=== PATIENT | female | born 1950 | race Two or more races ===

== ENCOUNTER 2020-03-28 16:43 | Emergency (ER) | payer MEDICARE, MEDICAID ==
--- NOTE | 2020-03-28 19:44 | EDM.PDOC ---
ED HPI GENERAL MEDICAL PROBLEM - General Chief Complaint: Neurological Problem Stated Complaint: CONFUSED/PALE Time Seen by Provider: 03/28/20 17:15 Source of Information: Reports: Patient, Family, RN Notes Reviewed - History of Present Illness INITIAL COMMENTS - FREE TEXT/NARRATIVE: Patient is a 70-year-old female brought in by her granddaughter with concerns of confusion. Granddaughter states that her grandmother left her home in [place] on 07 March to be with a new that she met. The family has never met this individual before and not even sure how she ended up with him. She states that she is normally very active in the family's lives. She talks to her son daily and interacts with the rest of the family frequently through social media. For the last 2 weeks, patient has not been responding to family members. Granddaughter states that on Friday of last week, her sister finally got a hold of her and the patient appeared disoriented and was acting like she did not know who she was. The granddaughter who is with her, Ag, drove to [place] from [place] to find her grandmother and check on her status. She states that when she arrived to her address, the patient answered the door which is abnormal for her. She would not normally answer doors. She appeared to not even recognize her at first, however now she does know that it is her granddaughter and knows her name. Police were notified because there is some concern that her new may have been mistreating or drugging her. He is recommended that she come to the emergency department to be evaluated. Patient is Syrian-speaking only, so communication was done through the scout iPad. Patient is oriented to self but thinks it is February. She knows that she is in the hospital. She states that she got to [place] by flying here, however she does not remember how she met her or how long she has been here. She states that she has been taking her medications daily. She stated that today she felt "like she was going to ". When asked to elaborate on this she said that she felt some palpitations in her chest and had an episode of diarrhea. Right now she states she feels well. She is having no pain. She does state that 4 days ago she had fallen and hit her head. She does not remember how she fell. She denies that her is mistreating her or that she has been using any illicit drugs or alcohol. She recognizes her granddaughter and is able to name her by name. She was able to walk back to the room without difficulty. She states that she has some numbness in both of her feet, however that is normal for her. - Related Data Allergies Allergy/AdvReac Type Severity Reaction Status Date / Time Penicillins Allergy Itching Verified 03/28/20 17:10 Home Meds: Home Meds Ascorbic Acid/Collagen Hydr [Collagen Plus Vit C] 03/28/20 [History] Aspirin [Halfprin] 81 mg PO DAILY 03/28/20 [History] Cariprazine HCl [Vraylar] 3 mg PO DAILY 03/28/20 [History] Cyclobenzaprine [Flexeril] 10 mg PO TID PRN 03/28/20 [History] Fenofibrate Nanocrystallized [Fenofibrate] 145 mg PO DAILY 03/28/20 [History] Gabapentin [Gralise] 600 mg PO DAILY 03/28/20 [History] Glimepiride 2 mg PO DAILY 03/28/20 [History] Hydrocortisone [Hydrocortisone 2.5% Crm] 30 gm .XX 03/28/20 [History] Ibuprofen [Motrin] 800 mg PO 03/28/20 [History] Levothyroxine [Synthroid] 88 mcg PO ACBREAKFAST 03/28/20 [History] Methenamine Hippurate 1 gm PO DAILY 03/28/20 [History] Multivit-Min/Iron/Folic Acid/K [Multi For Her Softgel] 1 tab PO DAILY 03/28/20 [History] Omeprazole 40 mg PO DAILY 03/28/20 [History] Rosuvastatin [Crestor] 20 mg PO DAILY 03/28/20 [History] Triamcinolone Acetonide [Triamcinolone Acetonide 0.5%] 03/28/20 [History] Valsartan 80 mg PO DAILY 03/28/20 [History] cycloSPORINE [Restasis Multidose] 0.5 ml OP ASDIRECTED 03/28/20 [History] metFORMIN HCl [Metformin HCl] 750 mg PO DAILY 03/28/20 [History] Past Medical History HEENT History: Reports: Impaired Vision Cardiovascular History: Reports: High Cholesterol, Hypertension Respiratory History: Reports: None Gastrointestinal History: Reports: GERD Genitourinary History: Reports: None RN CVOR History: Reports: Musculoskeletal History: Reports: Back Pain, Chronic, Neck Pain, Chronic Neurological History: Reports: None Psychiatric History: Reports: None Endocrine/Metabolic History: Reports: Diabetes, Type II, Hypothyroidism Hematologic History: Reports: None Immunologic History: Reports: None Oncologic (Cancer) History: Reports: Thyroid Dermatologic History: Reports: Other (See Below) Other Dermatologic History: uses creams but unsure why - Infectious Disease History Infectious Disease History: Reports: None - Past Surgical History Head Surgeries/Procedures: Reports: None HEENT Surgical History: Reports: Adenoidectomy, Tonsillectomy Social & Family History - Family History Family Medical History: Noncontributory - Tobacco Use Tobacco Use Status *Q: Never Tobacco User - Caffeine Use Caffeine Use: Reports: Coffee - Recreational Drug Use Recreational Drug Use: No ED ROS GENERAL - Review of Systems Review Of Systems: See Below Constitutional: Reports: No Symptoms. Denies: Fever, Chills, Weakness HEENT: Reports: No Symptoms Respiratory: Reports: No Symptoms. Denies: Shortness of Breath, Cough Cardiovascular: Reports: Palpitations. Denies: Chest Pain, Lightheadedness, Syncope Endocrine: Reports: No Symptoms GI/Abdominal: Reports: Diarrhea. Denies: Abdominal Pain, Nausea, Vomiting : Reports: No Symptoms Musculoskeletal: Reports: No Symptoms Skin: Reports: No Symptoms Neurological: Reports: Confusion, Paresthesia (Bilateral feet). Denies: Headache Psychiatric: Reports: Confusion. Denies: Agitation, Hallucinations, Suicidal Ideation Hematologic/Lymphatic: Reports: No Symptoms Immunologic: Reports: No Symptoms - Physical Exam Exam: See Below General Appearance: Alert, WD/WN, No Apparent Distress Eye Exam: Bilateral Eye: PERRL, Vision Changes (Denies any blurred vision or vision changes) Ears: Normal External Exam, Normal Canal, Hearing Grossly Normal, Normal TMs Head Exam: Atraumatic, Normocephalic Respiratory/Chest: No Respiratory Distress, Lungs Clear, Normal Breath Sounds, No Accessory Muscle Use, Chest Non-Tender Cardiovascular: Normal Peripheral Pulses, Regular Rate, Rhythm, No Edema, No Gallop, No JVD, No Murmur, No Rub GI/Abdominal: Normal Bowel Sounds, Soft, Non-Tender, No Organomegaly, No Distention, No Abnormal Bruit, No Mass Neuro Exam (Abbreviated): Alert, CN II-XII Intact, Normal Gait, Normal Reflexes, No Motor/Sensory Deficits, Confused, Disoriented (To time) Psychiatric: Flat Affect Skin Exam: Warm, Dry, Intact, Normal Color, No Rash #1 Interpretation EKG Date: 03/28/20 Time: 17:07 Rhythm: NSR Rate (Beats/Min): 85 [place]: LAD-Left [place] Deviation P-Wave: Present QRS: Normal ST-T: Normal QT: Normal Course - Vital Signs Last Recorded V/S: Last Vital Signs Temp 97.2 F 03/28/20 17:13 Pulse 88 03/28/20 17:13 Resp 26 H 03/28/20 17:13 BP 158/70 H 03/28/20 17:13 Pulse Ox 92 L 03/28/20 17:13 - Orders/Labs/Meds Orders: Active Orders 24 hr Category Date Time Status Head wo Cont [CT] Stat Exams 03/28/20 17:29 Taken Labs: Laboratory Tests 03/28/20 03/28/20 03/28/20 Range/Units 17:00 17:00 17:00 WBC 6.40 (3.98-10.04) K/mm3 RBC 5.05 (3.98-5.22) M/mm3 Hgb 14.3 (11.2-15.7) gm/dl Hct 42.2 (34.1-44.9) % MCV 83.6 (79.4-94.8) fl MCH 28.3 (25.6-32.2) pg MCHC 33.9 (32.2-35.5) g/dl RDW Std Deviation 41.7 (36.4-46.3) fL Plt Count 520 H (182-369) K/mm3 MPV 8.4 L (9.4-12.3) fl Neut % (Auto) 58.7 (34.0-71.1) % Lymph % (Auto) 24.8 (19.3-51.7) % [place] % (Auto) 8.8 (4.7-12.5) % Eos % (Auto) 6.3 H (0.7-5.8) Baso % (Auto) 0.6 (0.1-1.2) % Neut # (Auto) 3.76 (1.56-6.13) K/mm3 Lymph # (Auto) 1.59 (1.18-3.74) K/mm3 [place] # (Auto) 0.56 H (0.24-0.36) K/mm3 Eos # (Auto) 0.40 H (0.04-0.36) K/mm3 Baso # (Auto) 0.04 (0.01-0.08) K/mm3 Manual Slide Review Abnormal smear Sodium 134 L (136-145) mEq/L Potassium 3.8 (3.5-5.1) mEq/L Chloride 97 L (98-107) mEq/L Carbon Dioxide 22 (21-32) mEq/L Anion Gap 18.8 H (5-15) BUN 16 (7-18) mg/dL Creatinine 1.0 (0.55-1.02) mg/dL Est Cr Clr Drug Dosing 48.45 mL/min Estimated GFR (MDRD) 55 (>60) mL/min BUN/Creatinine Ratio 16.0 (14-18) Glucose 129 H (80-115) mg/dL POC Glucose (80-115) mg/dL Calcium 10.1 (8.5-10.1) mg/dL Total Bilirubin 0.7 (0.2-1.0) mg/dL AST 33 (15-37) U/L ALT 26 (14-59) U/L Alkaline Phosphatase 82 (46-116) U/L Troponin I < 0.017 (0.00-0.056) ng/mL C-Reactive Protein 0.6 (<1.0) mg/dL Total Protein 8.6 H (6.4-8.2) g/dl Albumin 3.7 (3.4-5.0) g/dl Globulin 4.9 gm/dL Albumin/Globulin Ratio 0.8 L (1-2) Free T4 0.72 L (0.76-1.46) ng/dL TSH 3rd Generation 61.421 H (0.358-3.74) uIU/mL Urine Color (Yellow) Urine Appearance (Clear) Urine pH (5.0-8.0) Ur Specific [place] (1.005-1.030) Urine Protein (Negative) Urine Glucose (UA) (Negative) Urine Ketones (Negative) Urine Occult Blood (Negative) Urine Nitrite (Negative) Urine Bilirubin (Negative) Urine Urobilinogen (0.2-1.0) Ur Leukocyte Esterase (Negative) Urine RBC (0-5) /hpf Urine WBC (0-5) /hpf Ur Squamous Epith Cells (0-5) /hpf Urine Bacteria (FEW) /hpf Urine Mucus (FEW) /hpf Urine Opiates Screen (MAPFAI=501) Ur Buprenorphine Scrn (CUTOFF=10) Ur Oxycodone Screen (RZM0AN=484) Urine Methadone Screen (HVOIDN=963) Ur Propoxyphene Screen (WUQFPO=109) Ur Barbiturates Screen (TWHYOZ=922) Ur Tricyclics Screen (DMKXEO=772) Ur Phencyclidine Scrn (CUTOFF=25) Ur Amphetamine Screen (NJCCUF=929) U Methamphetamines Scrn (GMONLJ=887) U Benzodiazepines Scrn (UDQMXT=364) U Cocaine Metab Screen (GRRIOI=138) U Marijuana (THC) Screen (CUTOFF=50) 03/28/20 03/28/20 03/28/20 Range/Units 17:18 17:55 17:55 WBC (3.98-10.04) K/mm3 RBC (3.98-5.22) M/mm3 Hgb (11.2-15.7) gm/dl Hct (34.1-44.9) % MCV (79.4-94.8) fl MCH (25.6-32.2) pg MCHC (32.2-35.5) g/dl RDW Std Deviation (36.4-46.3) fL Plt Count (182-369) K/mm3 MPV (9.4-12.3) fl Neut % (Auto) (34.0-71.1) % Lymph % (Auto) (19.3-51.7) % [place] % (Auto) (4.7-12.5) % Eos % (Auto) (0.7-5.8) Baso % (Auto) (0.1-1.2) % Neut # (Auto) (1.56-6.13) K/mm3 Lymph # (Auto) (1.18-3.74) K/mm3 [place] # (Auto) (0.24-0.36) K/mm3 Eos # (Auto) (0.04-0.36) K/mm3 Baso # (Auto) (0.01-0.08) K/mm3 Manual Slide Review Sodium (136-145) mEq/L Potassium (3.5-5.1) mEq/L Chloride (98-107) mEq/L Carbon Dioxide (21-32) mEq/L Anion Gap (5-15) BUN (7-18) mg/dL Creatinine (0.55-1.02) mg/dL Est Cr Clr Drug Dosing mL/min Estimated GFR (MDRD) (>60) mL/min BUN/Creatinine Ratio (14-18) Glucose (80-115) mg/dL POC Glucose 116 H (80-115) mg/dL Calcium (8.5-10.1) mg/dL Total Bilirubin (0.2-1.0) mg/dL AST (15-37) U/L ALT (14-59) U/L Alkaline Phosphatase (46-116) U/L Troponin I (0.00-0.056) ng/mL C-Reactive Protein (<1.0) mg/dL Total Protein (6.4-8.2) g/dl Albumin (3.4-5.0) g/dl Globulin gm/dL Albumin/Globulin Ratio (1-2) Free T4 (0.76-1.46) ng/dL TSH 3rd Generation (0.358-3.74) uIU/mL Urine Color Yellow (Yellow) Urine Appearance Slt cloudy H (Clear) Urine pH 6.0 (5.0-8.0) Ur Specific [place] 1.025 (1.005-1.030) Urine Protein Trace H (Negative) Urine Glucose (UA) Negative (Negative) Urine Ketones 2+ H (Negative) Urine Occult Blood Negative (Negative) Urine Nitrite Negative (Negative) Urine Bilirubin 1+ H (Negative) Urine Urobilinogen 2.0 H (0.2-1.0) Ur Leukocyte Esterase Negative (Negative) Urine RBC 0-5 (0-5) /hpf Urine WBC 5-10 H (0-5) /hpf Ur Squamous Epith Cells 10-20 H (0-5) /hpf Urine Bacteria Few (FEW) /hpf Urine Mucus Moderate H (FEW) /hpf Urine Opiates Screen Negative (GXSLAT=511) Ur Buprenorphine Scrn Negative (CUTOFF=10) Ur Oxycodone Screen Negative (FSO0BV=299) Urine Methadone Screen Negative (BASDJH=447) Ur Propoxyphene Screen Negative (CVWJHD=524) Ur Barbiturates Screen Negative (ZJUODX=582) Ur Tricyclics Screen Negative (DWLECZ=192) Ur Phencyclidine Scrn Negative (CUTOFF=25) Ur Amphetamine Screen Negative (PTAPOE=873) U Methamphetamines Scrn Negative (WMGGYB=258) U Benzodiazepines Scrn Negative (XDHKUE=396) U Cocaine Metab Screen Negative (KTFDFM=481) U Marijuana (THC) Screen Negative (CUTOFF=50) - Re-Assessments/Exams Free Text/Narrative Re-Assessment/Exam: Patient is a 70-year-old female brought into the emergency department for medical evaluation with concerns that she may have been given drugs or other illicit substances. She left her home in [place] about 3 weeks ago and family had not heard from her since. This is very abnormal for the patient as she is close with her family and speaks with her son daily. She spoke with her granddaughter on Friday and sounded disoriented, therefore her other granddaughter drove up here and just arrived into [place] today. Patient states that she has been taking all of her medications and is unsure what is been going on for the last few weeks. She does complain of falling and at one time but is not sure how that happened. On exam, she is neurologically intact. She has no focal neurologic deficits. Grasps are equal bilateral. She has equal leg strength. She has normal speech, however she does appear to be confused. Patient states she has been taking her medications, however, when checking her medication bottles, her Vraylar, antipsychotic medication was filled in January and the bottle is full. When asked if she has a history of bipolar disorder she states yes. She cannot tell me what her symptoms of bipolar were and states that she does not know why they put her on those medications. We will complete a comprehensive work-up including CBC, CMP, CRP, troponin, D-dimer, TSH, free T4, urinalysis, urine drug screen, and a CT scan of her head. 03/28/20 19:54 Patient's work-up was significant for sodium minimally low at 134, chloride 97, anion gap 18.8 Free T4 low at 0.72, TSH elevated at 61.421. Urinalysis was negative for infection. Urine drug screen was negative. CT scan of the head showed no evidence of acute transcortical infarct, hydrocephalus, acute intracranial hemorrhage, or mass-effect. I see no clinical indication for her confusion, however she has abruptly stopped her antipsychotic medication, this could be an acute psychotic episode. Spoke with her granddaughter Samreen Choudhury, her plan is to take the patient back to [place]. They are leaving tonight. She has been to let her get some sleep and see how she acclimates once back home. She is good to have her follow-up with her primary care physician to try to get her medications and medical conditions back in alignment. I did let her know that she should definitely ensure that she is taking her levothyroxine as she is in a hypothyroid state at this time. It would be beneficial for her to resume taking her other medications as well. She will and is in agreement with this plan. Discharge instructions as documented. Departure - Departure Time of Disposition: 19:55 Disposition: Home, Self-Care 01 Condition: Good Clinical Impression: Confusion - Discharge Information *PRESCRIPTION DRUG MONITORING PROGRAM REVIEWED*: No *COPY OF PRESCRIPTION DRUG MONITORING REPORT IN PATIENT CYRIL: No Instructions: Confusion Referrals: PCP,None [Primary Care Provider] - Forms: ED Department Discharge Additional Instructions: You were seen in the emergency department today for confusion after you lost contact with your family members for the last 3 weeks. Your work-up included blood work, urinalysis, a CT scan of your head, and EKG of your heart. Results your work-up show that you are in a hypothyroid state indicating that you are likely not been taking her levothyroxine. The CT scan of your head was found to be normal. You state that you also have not been taking your Vraylar which is an antipsychotic medication or your other medications. Your confusion and disorientation could be related to stopping your medications abruptly. Re commend that you resume taking your medications daily as previously prescribed. Follow-up with your primary care physician as soon as you return to [place]. If you should experience any medical difficulties while on your way back to [place], please stop at the nearest ER for evaluation. Sepsis Event Note (ED) - Evaluation Sepsis Screening Result: No Definite Risk - Focused Exam Vital Signs: Vital Signs Temp Pulse Resp BP Pulse Ox 03/28/20 17:13 97.2 F 88 26 H 158/70 H 92 L - My Orders Last 24 Hours: My Active Orders 03/28/20 17:29 Head wo Cont [CT] Stat - Assessment/Plan Last 24 Hours: My Active Orders 03/28/20 17:29 Head wo Cont [CT] Stat
== END 2020-03-28 20:48 | disposition home or self-care (01) ==
LOC: JD.ED 16:43
DX: R41.0 Disorientation, unspecified (principal); I10 Essential (primary) hypertension; K21.9 Gastro-esophageal reflux disease without esophagitis; E11.9 Type 2 diabetes mellitus without complications; E03.9 Hypothyroidism, unspecified; E78.00 Pure hypercholesterolemia, unspecified; Z88.0 Allergy status to penicillin; Z79.82 Long term (current) use of aspirin; Z79.84 Long term (current) use of oral hypoglycemic drugs; Z79.899 Other long term (current) drug therapy
CPT/HCPCS: 36415; 70450; 80053; 80306; 81001; 82962; 84439; 84443; 84484; 85025; 86140; 93005; 93010; 99283; 99285-25